=== PATIENT | female | born 1940 | race Caucasian/White ===

== ENCOUNTER → 2019-02-14 10:47 | Outpatient (CLI) | payer MEDICARE, OTHER, SELFPAY ==
--- NOTE | 2019-02-14 | DI.MG.S_ITS ---
BILATERAL DIGITAL SCREENING MAMMOGRAM 3D/2D WITH CAD: 02/14/2019 CLINICAL: Routine screening. Family history of breast cancer. Comparison is made to exams dated: 12/18/2017 mammogram, 11/14/2016 mammogram, and 10/12/2015 mammogram - [facility]. There are scattered fibroglandular elements in both breasts. Current study was also evaluated with a Computer Aided Detection (CAD) system. No significant masses, calcifications, or other findings are seen in either breast. There has been no significant interval change. IMPRESSION: NEGATIVE There is no mammographic evidence of malignancy. A 1 year screening mammogram is recommended. This exam was interpreted at Station ID: [id number]. NOTE: For mammograms, a report in lay terms will be sent to the patient. Approximately 15% of breast malignancies will not be visualized mammographically. In the management of a palpable breast mass, a negative mammogram must not discourage biopsy of a clinically suspicious lesion. Electronically Signed By: Derek garcia/sahra:02/14/2019 21:16:39 letter sent: Normal Exam ACR BI-RADS Category 1: Negative [id number]
== END ==
PROVIDERS: Family Provider Family Medicine; PCP Family Medicine; Visit Provider Family Medicine
DX: Z12.31 Encounter for screening mammogram for malignant neoplasm of breast (principal); Z80.3 Family history of malignant neoplasm of breast
CPT/HCPCS: 77063; 77067

== ENCOUNTER → 2022-01-06 08:25 | Outpatient (CLI) | payer MEDICARE, OTHER, SELFPAY ==
[2022-01-06 19:06] LABS: Add Manual Diff / Slide Review NO; Basophils Absolute Auto 100 /uL (0-100); Eosinophils Absolute Auto 100 /uL (0-450); Eosinophils Percent Auto 1.9 % (2-4); Hematocrit 38.4 % (36-46); Hemoglobin 12.9 g/dL (12.0-16.0); Lymphocytes Absolute Auto 1400 /uL (1100-4500); Lymphocytes Percent Auto 20.8 % (25-40); Mean Corpuscular HGB Conc 33.6 % (30-36); Mean Corpuscular Hemoglobin 27.1 PG (26-34); Mean Corpuscular Volume 80.5 fL (80-100); Monocytes Absolute Auto 700 /uL (0-900); Neutrophils Absolute Auto 4300 /uL (1500-7000); Neutrophils Percent Auto 65.3 % (50-75); Platelet Count 318 X10^3/uL (150-400); Red Blood Cell Count 4.77 X10^6/uL (4.0-5.2); Red Cell Distribution Width 13.3 % (11.6-14.8); White Blood Cell Count 6.6 X10^3/uL (4.5-11.0)
[2022-01-06 19:14] LABS: Alanine Aminotransferase 17 IU/L (<35); Albumin 3.4 g/dL (3.5-5.0); Albumin Globulin Ratio 1.1 (1.0-2.8); Alkaline Phosphatase 75 U/L (38-126); Aspartate Aminotransferase 22 IU/L (14-36); BUN Creatinine Ratio 22.9 (6-22); Bilirubin Total 1.1 mg/dL (0.2-1.3); Blood Urea Nitrogen 16 mg/dL (7-17); Calcium 9.7 mg/dL (8.4-10.2); Carbon Dioxide 36 mmol/L (22-32); Chloride 102 mmol/L (98-107); Estimated Glomerular Filt Rate > 60.0 mL/min (>60); Globulin 3.1 g/dL (1.7-4.1); Glucose 96 mg/dL (80-110); HEMOLYSIS < 15 (0-50); Potassium 3.9 mmol/L (3.4-5.1); Sodium 138 mmol/L (137-145); Total Protein 6.5 g/dL (6.3-8.2)
[2022-01-06 19:32] LABS: TSH w/ Reflex to FT4 < 0.02 uIU/mL (0.47-4.68)
[2022-01-06 20:11] LABS: Free T4, Direct Thyroxine 2.54 ng/dL (0.78-2.19)
== END ==
PROVIDERS: Family Provider Family Medicine; PCP Family Medicine; Visit Provider Family Medicine
DX: I10 Essential (primary) hypertension (principal); R39.15 Urgency of urination; J45.909 Unspecified asthma, uncomplicated
CPT/HCPCS: 80053; 84439; 84443; 85025

== ENCOUNTER → 2022-03-08 09:22 | Outpatient (CLI) | payer MEDICARE, OTHER, SELFPAY ==
[2022-03-08 19:39] LABS: Free T3, Triiodothyronine Free 8.64 pg/mL (2.77-5.27); Free T4, Direct Thyroxine 2.64 ng/dL (0.78-2.19)
[2022-03-08 20:13] LABS: Thyroid Stimulating Hormone < 0.015 uIU/mL (0.47-4.68)
[2022-03-09 08:08] LABS: Thyroid Peroxidase Antibodies 9 IU/mL (0-34)
[2022-03-09 18:24] LABS: Anti Thyroglobulin Antibody <1.0 IU/mL (0.0-0.9)
== END ==
PROVIDERS: Family Provider Family Medicine; PCP Family Medicine; Visit Provider Family Medicine
DX: I10 Essential (primary) hypertension (principal); E05.90 Thyrotoxicosis, unspecified without thyrotoxic crisis or storm; K21.9 Gastro-esophageal reflux disease without esophagitis
CPT/HCPCS: 84439; 84443; 84481; 86376; 86800

== ENCOUNTER → 2022-03-14 12:14 | Outpatient (CLI) | payer MEDICARE, OTHER, SELFPAY ==
[2022-03-15 18:36] LABS: Anti Thyroglobulin Antibody <1.0 IU/mL (0.0-0.9); Thyroid Peroxidase Antibodies 10 IU/mL (0-34)
[2022-03-15 21:16] LABS: Thyroglobulin Antibodies < 1.0 IU/mL (0.0-0.9)
== END ==
PROVIDERS: Family Provider Family Medicine; PCP Family Medicine; Visit Provider Family Medicine
DX: E05.90 Thyrotoxicosis, unspecified without thyrotoxic crisis or storm (principal); I10 Essential (primary) hypertension; J45.901 Unspecified asthma with (acute) exacerbation
CPT/HCPCS: 84432; 86376; 86800

== ENCOUNTER → 2022-03-22 10:55 | Outpatient (CLI) | payer MEDICARE, OTHER, SELFPAY ==
--- NOTE | 2022-03-22 10:58 | DI.US.S_ITS ---
PROCEDURE: US THYROID INDICATIONS: PERSISTENT HYPERTHYROIDISM TECHNIQUE: Real-time scanning was performed of the thyroid gland, with image documentation. COMPARISON: None. FINDINGS: Right: Thyroid lobe measures 5.7 x 3.6 x 3 cm, and is heterogeneous in echotexture. Left: Thyroid lobe measures 3.7 x 1.8 x 1.7 cm, and is heterogeneous in echotexture. Isthmus: 5.4 mm thick. Nodule number: 1 Location: Upper pole right thyroid lobe Size: 1.6 x 1.4 x 1 cm. Composition: Solid Echogenicity: Isoechoic Shape: Wider than tall Margins: Smooth Echogenic foci: Peripheral calcifications are seen. Total points: 5 ACR TI-RADS category: Moderately suspicious. Nodule number: 2 Location: Mid pole of right thyroid lobe Size: 3.7 x 2.1 x 2.5 cm. Composition: Predominantly solid Echogenicity: Isoechoic Shape: Wider than tall Margins: Smooth Echogenic foci: Macro calcifications Total points: 4 ACR TI-RADS category: Moderately suspicious. Nodule number: 3 Location: Medial right mid thyroid lobe. Size: 1.7 x 1.6 x 0.8 cm. Composition: Predominantly solid Echogenicity: Hypoechoic Shape: Wider than tall Margins: Smooth Echogenic foci: None Total points: 4 ACR TI-RADS category: Moderately suspicious. Nodule number: 4 Location: Mid pole of left thyroid lobe Size: 1.9 x 2.1 x 1.2 cm. Composition: Predominantly solid Echogenicity: Hypoechoic Shape: Wider than tall Margins: Smooth Echogenic foci: Punctate Total points: 4 ACR TI-RADS category: Moderately suspicious. Nodule number: 5 Location: Mid to lower pole of left thyroid lobe Size: 1.9 x 0.9 x 0.8 cm Composition: Predominantly solid Echogenicity: Hypoechoic Shape: Wider than tall Margins: Smooth Echogenic foci: Punctate Total points: 4 ACR TI-RADS category: Moderately suspicious. Bilateral neck soft tissue lymph nodes are seen measures up to 7 x 6 x 3 mm in size in right neck soft tissue with suggestion of loss of fatty hilum. IMPRESSION: 1. Heterogeneous thyroid parenchymal echotexture with multiple moderately suspicious bilateral thyroid nodules as described above. Suggest fine needle aspiration of the largest nodule in right mid pole thyroid lobe open (nodule 2). FNA of thyroid nodule 4. In mid pole of left thyroid lobe is also recommended . ACR TI-RADS definitions and recommendations: TI-RADS 1 (benign): 0 points. FNA not needed. TI-RADS 2 (not suspicious): 2 points. FNA not needed. TI-RADS 3 (mildly suspicious): 3 points. * FNA if 2.5 cm or larger, follow up if 1.5 cm or larger (at 1, 3, and 5 years). TI-RADS 4 (moderately suspicious): 4-6 points. * FNA if 1.5 cm or larger, follow up if 1 cm or larger (at 1, 2, 3, and 5 years). TI-RADS 5 (highly suspicious): 7 points or more. * FNA if 1 cm or larger, follow up if 0.5 cm or larger (every year for 5 years). Dictated by: Venancio Peterson M.D. on 03/22/2022 at 12:42 Approved by: Venancio Peterson M.D. on 03/22/2022 at 12:48
== END ==
PROVIDERS: Family Provider Family Medicine; PCP Family Medicine; Referring Provider Family Medicine; Visit Provider Family Medicine
DX: M81.0 Age-related osteoporosis without current pathological fracture (principal); I10 Essential (primary) hypertension; J45.909 Unspecified asthma, uncomplicated; E05.90 Thyrotoxicosis, unspecified without thyrotoxic crisis or storm; K21.9 Gastro-esophageal reflux disease without esophagitis; J30.2 Other seasonal allergic rhinitis; E04.2 Nontoxic multinodular goiter; M85.89 Other specified disorders of bone density and structure, multiple sites
CPT/HCPCS: 76536; 77080

== ENCOUNTER → 2022-05-16 09:00 | Outpatient (CLI) | payer MEDICARE, OTHER, SELFPAY ==
--- NOTE | 2022-05-16 | PATH_ITS ---
Note [facility] Accession Number: [id number] TESTS RESULT FLAG UNITS REF RANGE LAB Clinician Provided Cytology Information No. of containers..02 Previously Prepared Cytology Slide 35 Unknown Storage/container code(s) Source: LEFT THYROID NODULE Clinician ICD10: E04.1 DIAGNOSIS: LEFT THYROID NODULE NEGATIVE FOR MALIGNANT CELLS. BETHESDA CATEGORY II. SPECIMEN CONSISTS OF BENIGN FOLLICULAR CELLS, HEMOSIDERIN-LADEN MACROPHAGES, COLLOID, AND BLOOD. THIS PATTERN IS CONSISTENT WITH A BENIGN FOLLICULAR NODULE. Pathologist ICD10: E04.1 Signed out by: Lizz Barrett MD, Pathologist NPI- [id number] Performed by: Mallorie Jaimes, Valve Maker ([facility]) Gross description: 30 CC, PINK, CLEAR RECIEVED: IN CYTOLYT WITH 6 ALCOHOL FIXED AND 6 QUICK STAINED SLIDES ALSO 1 RNA VIAL WAS RECEIVED. /VDU 05/17/2022 07 Local FLAG LEGEND: L-Low Normal,H-High Normal,LL-Alert Low,HH-Alert High <-Panic Low,>-Panic High,A-Abnormal,AA-Critical Abnormal Performed at: 01 =Z [facility] [address], [place] [address] Tad Burns MD, Performed at: 01 [facility] [address], [place], [place] [id number] MD Tad Burns MD Phone: [phone]
--- NOTE | 2022-05-16 | PATH_ITS ---
Note [facility] Accession Number: [id number] TESTS RESULT FLAG UNITS REF RANGE LAB Clinician Provided Cytology Information No. of containers..02 Previously Prepared Cytology Slide 35 Unknown Storage/container code(s) Source: RIGHT THYROID NODULE DIAGNOSIS: RIGHT THYROID NODULE INCONCLUSIVE. BETHESDA CATEGORY III. ATYPIA OF UNDETERMINED SIGNIFICANCE. MOLECULAR STUDIES REQUESTED ON THE RNA VIAL; RESULTS WILL BE REPORTED SEPARATELY. Pathologist ICD10: R89.6 Signed out by: Lizz Barrett MD, Pathologist NPI- [id number] Performed by: Mallorie Jaimes, Cell Cleaner ([facility]) Gross description: 30 CC, PINK, CLEAR RECIEVED: IN CYTOLYT WITH 6 ALCOHOL FIXED AND 6 QUICK STAINED SLIDES ALSO 1 RNA VIAL WAS RECEIVED. /VDU 05/17/2022 [facility] Local FLAG LEGEND: L-Low Normal,H-High Normal,LL-Alert Low,HH-Alert High <-Panic Low,>-Panic High,A-Abnormal,AA-Critical Abnormal Performed at: 01 =Z [facility] [address], [place] [address] Tad Burns MD, Performed at: 01 [facility] [address], [place], [place] [id number] MD Tad Burns MD Phone: [phone]
--- NOTE | 2022-05-16 09:01 | DI.US.S_ITS ---
PROCEDURE: US FINE NEEDLE ASPIRATION INDICATIONS: BILATERAL NODULE FNA TECHNIQUE: The indications, alternatives, benefits, risks, and complications of the procedure were explained to the patient. Written informed consent was obtained and placed in the chart. The area of interest was examined sonographically and a site was chosen for ultrasound guided percutaneous sampling. The skin was prepared and draped in the usual fashion, and anesthetized with 1% lidocaine infiltrated from the skin down to the lesion. Multiple passes were then performed, with contents emptied into an appropriate pathology specimen container. A bandage was applied to the area of access at completion of the study. COMPARISON: [facility], , US THYROID, 03/22/2022, 12:07. FINDINGS: Location(s) of lesion(s) sampled: -Right mid (nodule 2 from the exam dated 03/22/2022), -Left mid (nodule 4 on the prior report, which is labeled as left nodule 1 on the ultrasound images from the prior exam). [place]: 25 gauge hypodermic needles. Number of passes: 6 passes each Medications: 1% lidocaine for local anaesthesia. Complications: None. IMPRESSION: Successful ultrasound-guided fine needle aspiration of bilateral thyroid nodules, with cytology results pending. Dictated by: Ricardo Andrews M.D. on 05/16/2022 at 15:08 Approved by: Ricardo Andrews M.D. on 05/16/2022 at 15:11
== END ==
PROVIDERS: Family Provider Family Medicine; PCP Family Medicine; Referring Provider Family Medicine; Visit Provider Family Medicine
DX: E04.2 Nontoxic multinodular goiter (principal)
CPT/HCPCS: 10005; 10006

== ENCOUNTER → 2022-09-27 09:38 | Outpatient (CLI) | payer MEDICARE, OTHER, SELFPAY ==
[2022-09-27 12:30] LABS: COVID19 -Nasal RAPID Negative (Negative)
== END ==
PROVIDERS: Family Provider Family Medicine; PCP Family Medicine; Visit Provider Surgery
DX: Z01.812 Encounter for preprocedural laboratory examination (principal); Z20.822 Contact with and (suspected) exposure to COVID-19
CPT/HCPCS: 87635; C9803

== ENCOUNTER → 2022-09-28 10:20 | Day surgery (SDC) | payer MEDICARE, OTHER, SELFPAY ==
[2022-09-28] VITALS (9 sets, daily range): BP systolic 141–224; BP diastolic 67–96; PULSE 57–80; RESP 14–20; TEMP 36.4–36.8; O2SAT 94–100; BMI 26.5
--- NOTE | 2022-09-28 10:39 | PM.HP.1 ---
History of Present Illness History of Present Illness Chief complaint: EGD Narrative: Dysphagia Patient History Medical History Asthma GERD (gastroesophageal reflux disease) Hyperthyroidism Osteoporosis Seasonal allergic rhinitis Thyroid nodule Family & Social History Tobacco & Substance use: Smoking Status Former smoker Meds Home Medications and Allergies Home Medications Medication Instructions Recorded Confirmed Type aspirin 81 mg tablet,delayed 81 mg PO DAILY 12/14/21 05/09/22 History release fluticasone propionate 50 1 spray intranasal DAILY #16 grams 01/24/22 05/09/22 Rx mcg/actuation nasal spray,suspension olopatadine 0.1 % eye drops drp EYE-BOTH BID PRN allergy 01/24/22 05/09/22 History symptoms oxybutynin chloride 5 mg 5 mg PO DAILY #90 tabs 05/09/22 05/09/22 Rx tablet,extended release 24 hr risedronate 35 mg tablet (Actonel) 35 mg PO QWEEK #12 tabs 05/09/22 05/09/22 Rx atenolol 50 mg tablet 50 mg PO BID #180 tabs 07/25/22 Rx lisinopril 20 mg tablet 20 mg PO DAILY #90 tabs 08/31/22 Rx methimazole 5 mg tablet 5 mg PO DAILY #90 tabs 08/31/22 Rx omeprazole 20 mg tablet,delayed 20 mg PO DAILY #90 tabs 08/31/22 Rx release albuterol sulfate 90 mcg/actuation 2 puff inhalation Q4-6H PRN 09/21/22 Rx aerosol inhaler (ProAir HFA) bronchospasm #8.5 grams budesonide-formoterol HFA 160 See Rx Instructions .Route 09/21/22 Rx mcg-4.5 mcg/actuation aerosol .COMPLEX #10.2 grams inhaler (Symbicort) hydrochlorothiazide 25 mg tablet 25 mg PO DAILY #90 tabs 09/21/22 Rx Allergies Allergy/AdvReac Type Severity Reaction Status Date / Time bacitracin Allergy Unknown Verified 02/22/22 08:43 [From Neosporin ([id number])] ciprofloxacin [CIPROFLOXACIN] Allergy Unknown Verified 02/22/22 08:43 codeine [CODEINE] Allergy Unknown Verified 02/22/22 08:43 epinephrine [EPINEPHRINE] Allergy Unknown Verified 02/22/22 08:43 lidocaine [From XYLOCAINE] Allergy Unknown Verified 02/22/22 08:43 metronidazole [From FLAGYL] Allergy Unknown Verified 02/22/22 08:43 neomycin Allergy Unknown Verified 02/22/22 08:43 [From Neosporin ([id number])] Penicillins [PENICILLINS] Allergy Unknown Verified 02/22/22 08:43 polymyxin B Allergy Unknown Verified 02/22/22 08:43 [From Neosporin ([id number])] clindamycin [CLINDAMYCIN] AdvReac Unknown nausea Verified 02/22/22 08:43 Exam Narrative Exam Narrative: Oropharynx free of lesions Chest clear to auscultation percussion Cardiac exam reveals no S3 or murmur Assessment & Plan Assessment & Plan narrative: Suprasternal notch dysphagia need to evaluate with EGD. Risks, benefits, and alternatives discussed. Time Spent With Patient Critical Care time: I spent a total of [] minutes of critical care time on this patient's care today; this time is exclusive of procedural time.
--- NOTE | 2022-09-28 10:41 | PM.OP.EGD ---
Operative Date/Time/Diagnoses Date of procedure: 09/28/22 Procedure & Clinicians Study performed: EGD Indications: Dysphagia Surgeon: Shay Montero Procedure Notes Procedure in detail: After informed consent was obtained the patient was placed in left lateral decubitus position. The video upper scope was placed into the oropharynx and with the patient's help swallowed into the esophagus. The esophagus stomach and duodenum were carefully examined. On withdrawal retroflexed view the GE junction was performed. The scope was removed. The patient tolerated procedure well. Blood loss none Complications none Findings 1. Hypopharynx shows less space between the epiglottis and posterior pharynx. No inflammation or clear-cut masses seen 2. Normal esophagus 3. Normal stomach 4. Normal duodenal bulb and sweep Michell is having symptoms on the left side. I think she needs further workup starting with a video fluoroscopic swallowing study at [facility].
[2022-09-28] MEDS: SODIUM CHLORIDE 0.9% 1,000 ML 100 ML IV (10:49)
--- NOTE | 2022-09-28 16:22 | SUR.PHASEII ---
Patient's BP jayla after procedure. Patient reported 5/[address] Montero and RIZWAN lAfonso notified and patient was recommended to be evaluated in the ER. Patient agreed and she was transferred by stretcher to the ER. Report was called, then given at bedside to CAMILLE Cordero.
== END | disposition home or self-care (01) ==
PROVIDERS: Family Provider Family Medicine; PCP Family Medicine; Referring Provider Internal Medicine Gastroenterology; Visit Provider Internal Medicine Gastroenterology
PROC: 0DJ08ZZ Inspection of Upper Intestinal Tract, Via Natural or Artificial Opening Endoscopic (ICD-10-PCS; CPT 43235; principal; 2022-09-28 11:30)
DX: R13.10 Dysphagia, unspecified (principal); K21.9 Gastro-esophageal reflux disease without esophagitis; J45.909 Unspecified asthma, uncomplicated; I10 Essential (primary) hypertension; E03.9 Hypothyroidism, unspecified
CPT/HCPCS: 43235; 36415; 80048; 82550; 84484; 85025; 93005; 96374; 99284; J0360; J2704

== ENCOUNTER 2022-09-28 12:27 | Emergency (ER) | payer MEDICARE, OTHER, SELFPAY ==
[2022-09-28] VITALS (17 sets, daily range): BP systolic 189–222; BP diastolic 75–109; PULSE 63–90; RESP 18–24; TEMP 36.7; O2SAT 96–99; BMI 26.5
--- NOTE | 2022-09-28 13:05 | ED.GENADULT ---
HPI - General Adult General Chief complaint: Hypertension Stated complaint: Hypertension, Post Procedure Time Seen by Provider: 09/28/22 12:55 Source: patient Mode of arrival: Wheelchair Limitations: no limitations History of Present Illness HPI narrative: Patient is an 81-year-old female. Does have a history of hypertension. Is on medications. She did take her medications this morning. She had a upper endoscopy today. Afterwards was noted in PACU that her blood pressure has been elevated. Patient is asymptomatic. No chest pain. No shortness of breath. No headache. No lightheadedness. She states that at baseline her systolic blood pressures in the 150s/160 range. She was sent to the emergency department from PACU because of her blood pressure Related Data Home Medications Medication Instructions Recorded Confirmed aspirin 81 mg tablet,delayed 81 mg PO DAILY 12/14/21 09/28/22 release oxybutynin chloride 5 mg 5 mg PO DAILY 09/28/22 09/28/22 tablet,extended release 24 hr Previous Rx's Medication Instructions Recorded oxybutynin chloride 5 mg 5 mg PO DAILY #90 tabs 05/09/22 tablet,extended release 24 hr risedronate 35 mg tablet (Actonel) 35 mg PO QWEEK #12 tabs 05/09/22 atenolol 50 mg tablet 50 mg PO BID #180 tabs 07/25/22 lisinopril 20 mg tablet 20 mg PO DAILY #90 tabs 08/31/22 methimazole 5 mg tablet 5 mg PO DAILY #90 tabs 08/31/22 omeprazole 20 mg tablet,delayed 20 mg PO DAILY #90 tabs 08/31/22 release albuterol sulfate 90 mcg/actuation 2 puff inhalation Q4-6H PRN 09/21/22 aerosol inhaler (ProAir HFA) bronchospasm #8.5 grams budesonide-formoterol HFA 160 See Rx Instructions .Route 09/21/22 mcg-4.5 mcg/actuation aerosol .COMPLEX #10.2 grams inhaler (Symbicort) hydrochlorothiazide 25 mg tablet 25 mg PO DAILY #90 tabs 09/21/22 Allergies Allergy/AdvReac Type Severity Reaction Status Date / Time bacitracin Allergy Unknown Verified 09/28/22 12:32 [From Neosporin ([id number])] ciprofloxacin [CIPROFLOXACIN] Allergy Unknown Verified 09/28/22 12:32 codeine [CODEINE] Allergy Unknown Verified 09/28/22 12:32 epinephrine [EPINEPHRINE] Allergy Unknown Verified 09/28/22 12:32 lidocaine [From XYLOCAINE] Allergy Unknown Verified 09/28/22 12:32 metronidazole [From FLAGYL] Allergy Unknown Verified 09/28/22 12:32 neomycin Allergy Unknown Verified 09/28/22 12:32 [From Neosporin ([id number])] Penicillins [PENICILLINS] Allergy Unknown Verified 09/28/22 12:32 polymyxin B Allergy Unknown Verified 09/28/22 12:32 [From Neosporin ([id number])] clindamycin [CLINDAMYCIN] AdvReac Unknown nausea Verified 09/28/22 12:32 Review of Systems Constitutional Constitutional: Reports system reviewed and no additional complaints, except as documented Eyes Eyes: Reports system reviewed and no additional complaints, except as documented Cardiovascular Cardiovascular: Reports system reviewed and no additional complaints, except as documented Respiratory Respiratory: Reports system reviewed and no additional complaints, except as documented Gastrointestinal Gastrointestinal: Reports system reviewed and no additional complaints, except as documented Integumentary/Breasts Skin/Breast: Reports system reviewed and no additional complaints, except as documented Neurologic Neurologic: Reports system reviewed and no additional complaints, except as documented Hematologic/Lymphatic On Anticoagulants: No Allergic/Immunologic Allergic/Immunologic: Reports system reviewed and no additional complaints, except as documented Patient History Medical History Asthma GERD (gastroesophageal reflux disease) Hyperthyroidism Osteoporosis Seasonal allergic rhinitis Thyroid nodule Social History household members: spouse Smoking Status: Former smoker alcohol intake: never Smoking Status: Former smoker Substance Use Type: does not use Exam Initial Vital Signs Initial Vital Signs: Vital Signs Temperature 98.1 F 09/28/22 12:28 Pulse Rate 90 09/28/22 12:28 Respiratory Rate 18 09/28/22 12:28 Blood Pressure 222/109 H 09/28/22 12:28 Pulse Oximetry 99 09/28/22 12:28 Oxygen Delivery Method 09/28/22 12:28 HENMT Head: normal to inspection and normocephalic Chest Chest: normal inspection of the chest Resp Effort & Inspection: normal respiratory effort Auscultation: clear to auscultation bilaterally Cardio Rate: regular rate Rhythm: regular rhythm GI Inspection: normal to inspection Skin General: no rashes or lesions noted Neuro General: patient alert, patient awake, patient oriented x3 and moves all extremities Extrem General: normal to inspection and capillary refill normal Psych Appearance: grossly normal and well kempt Course Orders Ordered: ED Orders 09/28/22 12:30 Complete Blood Count AUTO DIFF Stat 09/28/22 13:06 EKG-12 Lead Stat 09/28/22 13:18 Basic Metabolic Panel Stat Troponin & CK Cardiac Panel Stat Discontinued Medications Hydralazine HCl (Hydralazine 20 Mg/Ml Vial) 5 mg IV NOW ONE Stop: 09/28/22 13:06 Last Admin: 09/28/22 13:17 Dose: 5 mg Documented By: SHIVANI Vital Signs Vital signs: Vital Signs - 8 hr 09/28/22 12:28 09/28/22 12:30 09/28/22 12:42 Temperature 98.1 F Pulse Rate 90 90 Respiratory Rate 18 22 Blood Pressure 222/109 H 218/94 H Pulse Oximetry 99 98 Oxygen Delivery Method Room Air 09/28/22 12:42 09/28/22 12:45 09/28/22 12:45 Temperature Pulse Rate 84 83 Respiratory Rate 19 18 Blood Pressure 200/75 H Pulse Oximetry 99 98 Oxygen Delivery Method 09/28/22 13:00 09/28/22 13:01 09/28/22 13:01 Temperature Pulse Rate 86 89 Respiratory Rate 21 24 Blood Pressure 205/95 H Pulse Oximetry 97 97 Oxygen Delivery Method 09/28/22 13:11 09/28/22 13:11 09/28/22 13:14 Temperature Pulse Rate 88 82 Respiratory Rate Blood Pressure 217/98 H Pulse Oximetry 98 99 Oxygen Delivery Method 09/28/22 13:15 09/28/22 13:17 09/28/22 13:15 Temperature Pulse Rate 88 85 Respiratory Rate Blood Pressure 206/78 H 206/78 H Pulse Oximetry 98 Oxygen Delivery Method 09/28/22 13:30 09/28/22 13:30 09/28/22 13:45 Temperature Pulse Rate 63 65 Respiratory Rate 18 19 Blood Pressure 195/84 H Pulse Oximetry 98 97 Oxygen Delivery Method 09/28/22 13:46 09/28/22 13:46 09/28/22 14:08 Temperature Pulse Rate 65 67 Respiratory Rate 18 Blood Pressure 196/99 H Pulse Oximetry 97 96 Oxygen Delivery Method 09/28/22 14:10 09/28/22 14:10 09/28/22 14:15 Temperature Pulse Rate 65 67 Respiratory Rate 18 22 Blood Pressure 189/77 H Pulse Oximetry 99 98 Oxygen Delivery Method 09/28/22 14:17 09/28/22 14:17 Temperature Pulse Rate 71 Respiratory Rate 24 Blood Pressure 208/91 H Pulse Oximetry 98 Oxygen Delivery Method Medical Decision Making Lab Data Lab results reviewed: Yes I reviewed the patient's lab results. Result diagrams: 09/28/22 12:30 09/28/22 13:18 Labs: Lab Results 09/28/22 09/28/22 Range/Units 12:30 13:18 WBC 8.8 (4.5-11.0) X10^3/uL RBC 5.15 (4.0-5.2) X10^6/uL Hgb 14.2 (12.0-16.0) g/dL Hct 43.1 (36-46) % MCV 83.8 (80-100) fL MCH 27.6 (26-34) PG MCHC 32.9 (30-36) % RDW 13.7 (11.6-14.8) % Plt Count 300 (150-400) X10^3/uL Neut % (Auto) 78.2 H (50-75) % Lymph % (Auto) 15.8 L (25-40) % [place] % (Auto) 5.1 (3-14) % Eos % (Auto) 0.5 L (2-4) % Baso % (Auto) 0.4 (0-2) % Neut # (Auto) 6900 (4331-9460) /uL Lymph # (Auto) 1400 (9502-3044) /uL [place] # (Auto) 400 (0-900) /uL Eos # (Auto) 0 (0-450) /uL Baso # (Auto) 0 (0-100) /uL Sodium 137 (137-145) mmol/L Potassium 3.8 (3.4-5.1) mmol/L Chloride 99 (98-107) mmol/L Carbon Dioxide 30 (22-32) mmol/L BUN 17 (7-17) mg/dL Creatinine 0.66 (0.52-1.04) mg/dL Estimated GFR > 60 (>60) mL/min BUN/Creatinine Ratio 25.8 H (6-22) Glucose 97 (80-110) mg/dL Calcium 8.7 (8.4-10.2) mg/dL Total Creatine Kinase 23 L (30-135) U/L CK-MB (CK-2) TNP CK-MB (CK-2) Rel Index TNP Troponin I < 0.012 (0.01-0.034) ng/mL ECG Data Attestation: I personally reviewed and interpreted this ECG as follows: Interpretation: Sinus rhythm Ventricular rate 86 Normal axis Normal QRS Normal QTC Nonspecific ST T wave changes MDM Narrative Medical decision making narrative: Patient was hypertensive upon arrival. She was given hydralazine. This did improve her blood pressure somewhat. She is asymptomatic from this elevation in the blood pressure. Low suspicion for stroke. Low suspicion for ACS. Kidney functions unremarkable. Not clinically in heart failure. Will discharge the patient home. She is going to take her blood pressure medication as directed. She is going to take her blood pressure at home. She was given strict return precautions. If she develops any specific symptoms she will return to the emergency department. If she has asymptomatic high blood pressure she will contact her primary doctor for follow-up. She expressed understanding and agreement with plan. Discharge Plan Departure Patient Disposition: Home Clinical Impression: Hypertension Instructions: DI for High Blood Pressure Activity Restrictions/Additional Instructions: I recommend that you continue to take all of your medications as directed. Follow all of the postprocedure instructions given to you by the general surgeon today. Contact your primary doctor for follow-up. Return to the emergency department for any new or worsening symptoms. Prescriptions: No Action atenolol 50 mg tablet 50 mg PO BID Qty: 180 3RF omeprazole 20 mg tablet,delayed release (DR/EC) 20 mg PO DAILY Qty: 90 3RF lisinopril 20 mg tablet 20 mg PO DAILY Qty: 90 3RF Rx Instructions: 1/2 a pill a day for 4 days then 1 per day methimazole 5 mg tablet 5 mg PO DAILY Qty: 90 1RF hydrochlorothiazide 25 mg tablet 25 mg PO DAILY Qty: 90 3RF budesonide-formoterol [Symbicort] 160-4.5 mcg/actuation HFA aerosol inhaler See Rx Instructions .ROUTE .COMPLEX Qty: 10.2 3RF Dose Instruction: INHALE ONE PUFF BY MOUTH EVERY DAY NEEDED FOR ASTHMA EXACERBATION Rx Instructions: INHALE ONE PUFF BY MOUTH EVERY DAY NEEDED FOR ASTHMA EXACERBATION albuterol sulfate [ProAir HFA] 90 mcg/actuation HFA aerosol inhaler 2 puff inhalation Q4-6H PRN (Reason: bronchospasm) Qty: 8.5 1RF oxybutynin chloride 5 mg tablet extended release 24hr 5 mg PO DAILY aspirin 81 mg tablet,delayed release (DR/EC) 81 mg PO DAILY risedronate [Actonel] 35 mg tablet 35 mg PO QWEEK Qty: 12 3RF Rx Instructions: administer at least 30 minutes before the first food or drink of the day other than water. oxybutynin chloride 5 mg tablet extended release 24hr 5 mg PO DAILY Qty: 90 3RF Referrals: Philippe Dumont DO [Primary Care Provider] - Visit Report Forms: Patient Portal/API
[2022-09-28] MEDS: HYDRALAZINE 20 MG/ML VIAL 5 MG IV (13:17)
[2022-09-28 13:21] LABS: Add Manual Diff / Slide Review NO; Basophils Absolute Auto 0 /uL (0-100); Basophils Percent Auto 0.4 % (0-2); Eosinophils Absolute Auto 0 /uL (0-450); Eosinophils Percent Auto 0.5 % (2-4); Hematocrit 43.1 % (36-46); Hemoglobin 14.2 g/dL (12.0-16.0); Lymphocytes Absolute Auto 1400 /uL (1100-4500); Lymphocytes Percent Auto 15.8 % (25-40); Mean Corpuscular HGB Conc 32.9 % (30-36); Mean Corpuscular Hemoglobin 27.6 PG (26-34); Mean Corpuscular Volume 83.8 fL (80-100); Monocytes Absolute Auto 400 /uL (0-900); Monocytes Percent Auto 5.1 % (3-14); Neutrophils Absolute Auto 6900 /uL (1500-7000); Neutrophils Percent Auto 78.2 % (50-75); Platelet Count 300 X10^3/uL (150-400); Red Blood Cell Count 5.15 X10^6/uL (4.0-5.2); Red Cell Distribution Width 13.7 % (11.6-14.8); White Blood Cell Count 8.8 X10^3/uL (4.5-11.0)
[2022-09-28 13:59] LABS: BUN Creatinine Ratio 25.8 (6-22); Blood Urea Nitrogen 17 mg/dL (7-17); Calcium 8.7 mg/dL (8.4-10.2); Carbon Dioxide 30 mmol/L (22-32); Chloride 99 mmol/L (98-107); Creatine Kinase 23 U/L (30-135); Estimated Glomerular Filt Rate > 60 mL/min (>60); Glucose 97 mg/dL (80-110); HEMOLYSIS < 15 (0-50); Potassium 3.8 mmol/L (3.4-5.1); Sodium 137 mmol/L (137-145)
[2022-09-28 14:10] LABS: Troponin I < 0.012 ng/mL (0.01-0.034)
--- NOTE | 2022-09-28 14:27 | PC.NURSE ---
Patient asymptomatic at discharge. Patient advised to monitor blood pressures at home and continue all medications. Patient has scheduled follow up with PCP
== END 2022-09-28 14:28 | disposition home or self-care (01) ==
PROVIDERS: Emergency Provider Emergency Medicine; Family Provider Family Medicine; PCP Family Medicine
DX: I10 Essential (primary) hypertension (principal)
CPT/HCPCS: 36415; 80048; 82550; 84484; 85025; 93005; J0360

== ENCOUNTER → 2022-10-25 12:02 | Outpatient (CLI) | payer MEDICARE, OTHER, SELFPAY ==
[2022-10-25 19:40] LABS: Alanine Aminotransferase 21 IU/L (<35); Albumin 3.3 g/dL (3.5-5.0); Alkaline Phosphatase 83 U/L (38-126); Aspartate Aminotransferase 23 IU/L (14-36); BUN Creatinine Ratio 24.3 (6-22); Bilirubin Total 0.5 mg/dL (0.2-1.3); Blood Urea Nitrogen 17 mg/dL (7-17); Calcium 8.7 mg/dL (8.4-10.2); Carbon Dioxide 32 mmol/L (22-32); Chloride 97 mmol/L (98-107); Estimated Glomerular Filt Rate > 60 mL/min (>60); Globulin 3.3 g/dL (1.7-4.1); Glucose 84 mg/dL (80-110); HEMOLYSIS < 15 (0-50); Sodium 137 mmol/L (137-145); Total Protein 6.6 g/dL (6.3-8.2)
[2022-10-25 19:48] LABS: Add Manual Diff / Slide Review NO; Basophils Absolute Auto 100 /uL (0-100); Basophils Percent Auto 0.8 % (0-2); Eosinophils Absolute Auto 100 /uL (0-450); Eosinophils Percent Auto 1.4 % (2-4); Hematocrit 38.5 % (36-46); Lymphocytes Absolute Auto 1800 /uL (1100-4500); Lymphocytes Percent Auto 19.9 % (25-40); Mean Corpuscular HGB Conc 33.8 % (30-36); Monocytes Absolute Auto 700 /uL (0-900); Neutrophils Absolute Auto 6300 /uL (1500-7000); Neutrophils Percent Auto 69.9 % (50-75); Platelet Count 326 X10^3/uL (150-400); Red Blood Cell Count 4.64 X10^6/uL (4.0-5.2); Red Cell Distribution Width 13.4 % (11.6-14.8)
== END ==
PROVIDERS: Family Provider Family Medicine; PCP Family Medicine; Visit Provider Family Medicine
DX: K21.9 Gastro-esophageal reflux disease without esophagitis (principal); E04.1 Nontoxic single thyroid nodule
CPT/HCPCS: 80053; 85025

== ENCOUNTER → 2023-05-18 09:38 | Outpatient (CLI) | payer MEDICARE, OTHER, SELFPAY ==
[2023-05-18 11:15] LABS: Add Manual Diff / Slide Review NO; Basophils Absolute Auto 100 /uL (0-100); Basophils Percent Auto 0.7 % (0-2); Eosinophils Absolute Auto 100 /uL (0-450); Eosinophils Percent Auto 1.6 % (2-4); Hematocrit 38.1 % (36-46); Hemoglobin 13.2 g/dL (12.0-16.0); Lymphocytes Absolute Auto 1300 /uL (1100-4500); Lymphocytes Percent Auto 16.8 % (25-40); Mean Corpuscular HGB Conc 34.7 % (30-36); Mean Corpuscular Volume 83.6 fL (80-100); Monocytes Absolute Auto 400 /uL (0-900); Monocytes Percent Auto 5.3 % (3-14); Neutrophils Absolute Auto 5700 /uL (1500-7000); Neutrophils Percent Auto 75.6 % (50-75); Platelet Count 320 X10^3/uL (150-400); Red Blood Cell Count 4.55 X10^6/uL (4.0-5.2); Red Cell Distribution Width 13.1 % (11.6-14.8); White Blood Cell Count 7.5 X10^3/uL (4.5-11.0)
[2023-05-18 11:22] LABS: Alanine Aminotransferase 18 IU/L (<35); Albumin 3.5 g/dL (3.5-5.0); Albumin Globulin Ratio 1.2 (1.0-2.8); Alkaline Phosphatase 69 U/L (38-126); Aspartate Aminotransferase 21 IU/L (14-36); Bilirubin Total 0.5 mg/dL (0.2-1.3); Blood Urea Nitrogen 18 mg/dL (7-17); Calcium 8.8 mg/dL (8.4-10.2); Carbon Dioxide 30 mmol/L (22-32); Chloride 98 mmol/L (98-107); Estimated Glomerular Filt Rate > 60 mL/min (>60); Glucose 91 mg/dL (80-110); HEMOLYSIS < 15 (0-50); Potassium 3.6 mmol/L (3.4-5.1); Sodium 133 mmol/L (137-145); Total Protein 6.5 g/dL (6.3-8.2)
[2023-05-18 11:58] LABS: Ferritin 44 ng/mL (11-264)
[2023-05-18 15:27] LABS: HEMOLYSIS < 15 (0-50); Iron 68 ug/dL (37-170)
[2023-05-18 15:40] LABS: Percent Iron Saturation 22 % (15-50); Total Iron Binding Capacity 306 ug/dL (265-497); Transferrin 216 mg/dL (206-381)
== END ==
PROVIDERS: Family Provider Family Medicine; PCP Family Medicine; Referring Provider Family Medicine; Visit Provider Family Medicine
DX: G47.00 Insomnia, unspecified (principal); D64.9 Anemia, unspecified; I10 Essential (primary) hypertension; E05.90 Thyrotoxicosis, unspecified without thyrotoxic crisis or storm
CPT/HCPCS: 36415; 80053; 82728; 83540; 83550; 85025

== ENCOUNTER → 2023-09-28 13:12 | Outpatient (CLI) | payer MEDICARE, OTHER, SELFPAY ==
[2023-09-28 21:05] LABS: BUN Creatinine Ratio 19.2 (6-22); Blood Urea Nitrogen 15 mg/dL (7-17); Calcium 9.4 mg/dL (8.4-10.2); Carbon Dioxide 31 mmol/L (22-32); Chloride 93 mmol/L (98-107); Estimated Glomerular Filt Rate > 60 mL/min (>60); Glucose 96 mg/dL (80-110); HEMOLYSIS < 15 (0-50); Potassium 4.2 mmol/L (3.4-5.1); Sodium 130 mmol/L (137-145)
[2023-09-28 21:13] LABS: Add Manual Diff / Slide Review NO; Basophils Absolute Auto 100 /uL (0-100); Eosinophils Absolute Auto 100 /uL (0-450); Eosinophils Percent Auto 0.9 % (2-4); Hematocrit 37.3 % (36-46); Hemoglobin 12.5 g/dL (12.0-16.0); Lymphocytes Absolute Auto 1500 /uL (1100-4500); Lymphocytes Percent Auto 16.5 % (25-40); Mean Corpuscular HGB Conc 33.5 % (30-36); Mean Corpuscular Hemoglobin 28.4 PG (26-34); Mean Corpuscular Volume 84.7 fL (80-100); Monocytes Absolute Auto 700 /uL (0-900); Monocytes Percent Auto 7.5 % (3-14); Neutrophils Absolute Auto 6800 /uL (1500-7000); Neutrophils Percent Auto 74.1 % (50-75); Platelet Count 482 X10^3/uL (150-400); Red Blood Cell Count 4.41 X10^6/uL (4.0-5.2); Red Cell Distribution Width 12.8 % (11.6-14.8); White Blood Cell Count 9.2 X10^3/uL (4.5-11.0)
[2023-09-28 21:40] LABS: Ferritin 95 ng/mL (11-264)
[2023-09-28 22:14] LABS: HEMOLYSIS < 15 (0-50); Iron 49 ug/dL (37-170)
[2023-09-28 22:25] LABS: Percent Iron Saturation 20 % (15-50); Total Iron Binding Capacity 251 ug/dL (265-497); Transferrin 203 mg/dL (206-381)
== END ==
PROVIDERS: Family Provider Family Medicine; PCP Family Medicine; Visit Provider Family Medicine
DX: D64.9 Anemia, unspecified (principal); G47.00 Insomnia, unspecified; I10 Essential (primary) hypertension; E87.1 Hypo-osmolality and hyponatremia
CPT/HCPCS: 80048; 82728; 83540; 83550; 85025

== ENCOUNTER → 2023-10-03 08:31 | Outpatient (CLI) | payer MEDICARE, OTHER, SELFPAY ==
[2023-10-03 21:16] LABS: Sodium Urine Random 77 mmol/L (30-90)
[2023-10-05 16:56] LABS: Osmolality Urine 478 mOsmol/kg (.)
== END ==
PROVIDERS: Family Provider Family Medicine; PCP Family Medicine; Visit Provider Family Medicine
DX: E87.1 Hypo-osmolality and hyponatremia (principal)
CPT/HCPCS: 83935; 84300

== ENCOUNTER → 2023-12-07 13:09 | Outpatient (CLI) | payer MEDICARE, OTHER, SELFPAY ==
[2023-12-07 20:40] LABS: Add Manual Diff / Slide Review NO; Basophils Absolute Auto 100 /uL (0-100); Basophils Percent Auto 0.8 % (0-2); Eosinophils Absolute Auto 100 /uL (0-450); Eosinophils Percent Auto 0.9 % (2-4); Hematocrit 38.5 % (36-46); Hemoglobin 13.3 g/dL (12.0-16.0); Lymphocytes Absolute Auto 1400 /uL (1100-4500); Mean Corpuscular HGB Conc 34.5 % (30-36); Mean Corpuscular Hemoglobin 29.3 PG (26-34); Monocytes Absolute Auto 500 /uL (0-900); Monocytes Percent Auto 6.2 % (3-14); Neutrophils Absolute Auto 5800 /uL (1500-7000); Neutrophils Percent Auto 74.1 % (50-75); Platelet Count 346 X10^3/uL (150-400); Red Blood Cell Count 4.53 X10^6/uL (4.0-5.2); Red Cell Distribution Width 13.7 % (11.6-14.8); White Blood Cell Count 7.9 X10^3/uL (4.5-11.0)
[2023-12-07 20:45] LABS: HEMOLYSIS < 15 (0-50); Iron 90 ug/dL (37-170)
[2023-12-07 20:47] LABS: BUN Creatinine Ratio 18.4 (6-22); Blood Urea Nitrogen 16 mg/dL (7-17); Calcium 9.4 mg/dL (8.4-10.2); Carbon Dioxide 30 mmol/L (22-32); Chloride 95 mmol/L (98-107); Estimated Glomerular Filt Rate > 60 mL/min (>60); Glucose 70 mg/dL (80-110); HEMOLYSIS < 15 (0-50); Potassium 4.3 mmol/L (3.4-5.1); Sodium 133 mmol/L (137-145)
[2023-12-07 21:04] LABS: Free T3, Triiodothyronine Free 3.81 pg/mL (2.77-5.27); Free T4, Direct Thyroxine 0.77 ng/dL (0.78-2.19); Percent Iron Saturation 32 % (15-50); Total Iron Binding Capacity 279 ug/dL (265-497); Transferrin 241 mg/dL (206-381)
[2023-12-07 21:17] LABS: Thyroid Stimulating Hormone 1.58 uIU/mL (0.47-4.68)
[2023-12-07 21:20] LABS: Ferritin 55 ng/mL (11-264)
[2023-12-11 15:36] LABS: Osmolality, Serum 276 mOsmol/kg (280-301)
== END ==
PROVIDERS: Family Provider Family Medicine; PCP Family Medicine; Visit Provider Family Medicine
DX: E87.1 Hypo-osmolality and hyponatremia (principal); E05.90 Thyrotoxicosis, unspecified without thyrotoxic crisis or storm; D64.9 Anemia, unspecified; I10 Essential (primary) hypertension; G47.00 Insomnia, unspecified; M25.559 Pain in unspecified hip
CPT/HCPCS: 80048; 82728; 83540; 83550; 83930; 84439; 84443; 84481; 85025

== ENCOUNTER → 2024-03-26 11:46 | Outpatient (CLI) | payer MEDICARE, OTHER, SELFPAY ==
[2024-03-26 19:40] LABS: Add Manual Diff / Slide Review NO; Basophils Absolute Auto 0 /uL (0-100); Basophils Percent Auto 0.6 % (0-2); Eosinophils Absolute Auto 100 /uL (0-450); Eosinophils Percent Auto 1.1 % (2-4); HEMOLYSIS < 15 (0-50); Hematocrit 38.1 % (36-46); Hemoglobin 12.8 g/dL (12.0-16.0); Iron 90 ug/dL (37-170); Lymphocytes Absolute Auto 1400 /uL (1100-4500); Lymphocytes Percent Auto 16.9 % (25-40); Mean Corpuscular HGB Conc 33.7 % (30-36); Mean Corpuscular Volume 86.1 fL (80-100); Monocytes Absolute Auto 500 /uL (0-900); Monocytes Percent Auto 6.4 % (3-14); Neutrophils Absolute Auto 6400 /uL (1500-7000); Platelet Count 347 X10^3/uL (150-400); Red Blood Cell Count 4.42 X10^6/uL (4.0-5.2); Red Cell Distribution Width 12.8 % (11.6-14.8); White Blood Cell Count 8.6 X10^3/uL (4.5-11.0)
[2024-03-26 19:46] LABS: BUN Creatinine Ratio 23.7 (6-22); Blood Urea Nitrogen 18 mg/dL (7-17); Calcium 8.9 mg/dL (8.4-10.2); Carbon Dioxide 32 mmol/L (22-32); Chloride 97 mmol/L (98-107); Estimated Glomerular Filt Rate > 60 mL/min (>60); Glucose 86 mg/dL (80-110); HEMOLYSIS < 15 (0-50); Potassium 4.3 mmol/L (3.4-5.1); Sodium 133 mmol/L (137-145)
[2024-03-26 19:52] LABS: Percent Iron Saturation 30 % (15-50); Total Iron Binding Capacity 301 ug/dL (265-497); Transferrin 252 mg/dL (206-381)
[2024-03-26 20:17] LABS: Ferritin 38 ng/mL (11-264)
== END ==
PROVIDERS: Family Provider Family Medicine; PCP Family Medicine; Visit Provider Family Medicine
DX: D64.9 Anemia, unspecified (principal); E87.1 Hypo-osmolality and hyponatremia; I10 Essential (primary) hypertension
CPT/HCPCS: 80048; 82728; 83540; 83550; 83735; 85025

== ENCOUNTER → 2024-08-06 13:02 | Outpatient (CLI) | payer MEDICARE, OTHER, SELFPAY ==
[2024-08-06 19:01] LABS: Add Manual Diff / Slide Review NO; Basophils Absolute Auto 100 /uL (0-100); Basophils Percent Auto 0.6 % (0-2); Eosinophils Absolute Auto 100 /uL (0-450); Eosinophils Percent Auto 0.6 % (2-4); Hematocrit 34.4 % (36-46); Hemoglobin 11.7 g/dL (12.0-16.0); Lymphocytes Absolute Auto 1500 /uL (1100-4500); Mean Corpuscular HGB Conc 34.2 % (30-36); Mean Corpuscular Hemoglobin 29.7 PG (26-34); Mean Corpuscular Volume 86.9 fL (80-100); Monocytes Absolute Auto 700 /uL (0-900); Monocytes Percent Auto 6.9 % (3-14); Neutrophils Absolute Auto 7700 /uL (1500-7000); Neutrophils Percent Auto 76.9 % (50-75); Platelet Count 398 X10^3/uL (150-400); Red Blood Cell Count 3.96 X10^6/uL (4.0-5.2)
[2024-08-06 20:16] LABS: HEMOLYSIS < 15 (0-50); Iron 54 ug/dL (37-170)
[2024-08-06 20:18] LABS: BUN Creatinine Ratio 18.3 (6-22); Blood Urea Nitrogen 15 mg/dL (7-17); Calcium 9.2 mg/dL (8.4-10.2); Carbon Dioxide 29 mmol/L (22-32); Chloride 94 mmol/L (98-107); Estimated Glomerular Filt Rate > 60 mL/min (>60); Glucose 78 mg/dL (80-110); HEMOLYSIS < 15 (0-50); Potassium 4.4 mmol/L (3.4-5.1); Sodium 129 mmol/L (137-145)
[2024-08-06 20:30] LABS: Percent Iron Saturation 17 % (15-50); Total Iron Binding Capacity 319 ug/dL (265-497); Transferrin 264 mg/dL (206-381)
[2024-08-06 20:43] LABS: Free T3, Triiodothyronine Free 3.16 pg/mL (2.77-5.27); Free T4, Direct Thyroxine 0.57 ng/dL (0.78-2.19)
[2024-08-06 20:56] LABS: Ferritin 25 ng/mL (11-264)
[2024-08-06 20:57] LABS: Thyroid Stimulating Hormone 4.53 uIU/mL (0.47-4.68)
== END ==
PROVIDERS: Family Provider Family Medicine; PCP Family Medicine; Visit Provider Family Medicine
DX: E87.1 Hypo-osmolality and hyponatremia (principal); D64.9 Anemia, unspecified; Z01.812 Encounter for preprocedural laboratory examination; E05.90 Thyrotoxicosis, unspecified without thyrotoxic crisis or storm; I10 Essential (primary) hypertension
CPT/HCPCS: 80048; 82728; 83540; 83550; 84439; 84443; 84481; 85025

== ENCOUNTER → 2024-08-16 07:40 | Outpatient (CLI) | payer MEDICARE, OTHER, SELFPAY ==
[2024-08-19 11:15] LABS: Fecal Immunochemical Test Positive (Negative)
== END ==
PROVIDERS: Family Provider Family Medicine; PCP Family Medicine; Visit Provider Family Medicine
DX: R00.1 Bradycardia, unspecified (principal); D64.9 Anemia, unspecified
CPT/HCPCS: 82274

== ENCOUNTER → 2024-10-08 12:55 | Outpatient (CLI) | payer MEDICARE, OTHER, SELFPAY ==
[2024-10-08 19:34] LABS: Add Manual Diff / Slide Review NO; Basophils Absolute Auto 0 /uL (0-100); Basophils Percent Auto 0.5 % (0-2); Eosinophils Absolute Auto 100 /uL (0-450); Eosinophils Percent Auto 0.9 % (2-4); Hematocrit 38.5 % (36-46); Lymphocytes Absolute Auto 1300 /uL (1100-4500); Lymphocytes Percent Auto 14.9 % (25-40); Mean Corpuscular HGB Conc 33.6 % (30-36); Mean Corpuscular Hemoglobin 29.1 PG (26-34); Mean Corpuscular Volume 86.4 fL (80-100); Monocytes Absolute Auto 600 /uL (0-900); Monocytes Percent Auto 6.8 % (3-14); Neutrophils Absolute Auto 7000 /uL (1500-7000); Neutrophils Percent Auto 76.9 % (50-75); Platelet Count 382 X10^3/uL (150-400); Red Blood Cell Count 4.46 X10^6/uL (4.0-5.2); Red Cell Distribution Width 12.4 % (11.6-14.8); White Blood Cell Count 9.1 X10^3/uL (4.5-11.0)
[2024-10-08 19:40] LABS: Reticulocyte Count, Percent 0.8 % (1.1-2.6)
[2024-10-08 19:57] LABS: BUN Creatinine Ratio 18.8 (6-22); Blood Urea Nitrogen 16 mg/dL (7-17); Calcium 9.3 mg/dL (8.4-10.2); Carbon Dioxide 32 mmol/L (22-32); Chloride 94 mmol/L (98-107); Estimated Glomerular Filt Rate > 60 mL/min (>60); Glucose 88 mg/dL (80-110); HEMOLYSIS < 15 (0-50); Magnesium 1.8 mg/dL (1.6-2.3); Potassium 4.3 mmol/L (3.4-5.1); Sodium 129 mmol/L (137-145)
[2024-10-08 20:29] LABS: Thyroid Stimulating Hormone 2.79 uIU/mL (0.47-4.68)
[2024-10-08 20:33] LABS: Ferritin 22 ng/mL (11-264)
[2024-10-08 21:20] LABS: Free T4, Direct Thyroxine 0.74 ng/dL (0.78-2.19)
== END ==
PROVIDERS: Family Provider Family Medicine; PCP Family Medicine; Visit Provider Family Medicine
DX: R00.1 Bradycardia, unspecified (principal); I10 Essential (primary) hypertension; D64.9 Anemia, unspecified; E05.90 Thyrotoxicosis, unspecified without thyrotoxic crisis or storm; E87.1 Hypo-osmolality and hyponatremia
CPT/HCPCS: 80048; 82728; 83735; 84439; 84443; 84480; 85025; 85045

== ENCOUNTER → 2025-01-06 11:03 | Outpatient (CLI) | payer MEDICARE, OTHER, SELFPAY ==
[2025-01-06 19:22] LABS: BUN Creatinine Ratio 21.1 (6-22); Blood Urea Nitrogen 19 mg/dL (7-17); Calcium 9.5 mg/dL (8.4-10.2); Carbon Dioxide 30 mmol/L (22-32); Chloride 93 mmol/L (98-107); Estimated Glomerular Filt Rate > 60 mL/min (>60); Glucose 94 mg/dL (80-110); HEMOLYSIS < 15 (0-50); Potassium 4.7 mmol/L (3.4-5.1); Sodium 131 mmol/L (137-145)
[2025-01-06 19:49] LABS: Thyroid Stimulating Hormone 2.68 uIU/mL (0.47-4.68)
[2025-01-06 19:54] LABS: Ferritin 28 ng/mL (11-264)
== END ==
PROVIDERS: Family Provider Family Medicine; PCP Family Medicine; Visit Provider Family Medicine
DX: D50.9 Iron deficiency anemia, unspecified (principal); R53.83 Other fatigue; I10 Essential (primary) hypertension; E05.90 Thyrotoxicosis, unspecified without thyrotoxic crisis or storm; E87.1 Hypo-osmolality and hyponatremia
CPT/HCPCS: 80048; 82728; 84443

== ENCOUNTER → 2025-03-18 11:25 | Outpatient (CLI) | payer MEDICARE, OTHER, SELFPAY ==
[2025-03-18 19:01] LABS: Add Manual Diff / Slide Review NO; Basophils Absolute Auto 0 /uL (0-100); Basophils Percent Auto 0.4 % (0-2); Eosinophils Absolute Auto 100 /uL (0-450); Hematocrit 38.5 % (36-46); Lymphocytes Absolute Auto 1400 /uL (1100-4500); Lymphocytes Percent Auto 16.5 % (25-40); Mean Corpuscular HGB Conc 33.8 % (30-36); Mean Corpuscular Hemoglobin 29.2 PG (26-34); Mean Corpuscular Volume 86.6 fL (80-100); Monocytes Absolute Auto 600 /uL (0-900); Monocytes Percent Auto 6.7 % (3-14); Neutrophils Absolute Auto 6600 /uL (1500-7000); Neutrophils Percent Auto 75.4 % (50-75); Platelet Count 359 X10^3/uL (150-400); Red Blood Cell Count 4.44 X10^6/uL (4.0-5.2); Red Cell Distribution Width 12.5 % (11.6-14.8); White Blood Cell Count 8.7 X10^3/uL (4.5-11.0)
[2025-03-18 19:30] LABS: Free T4, Direct Thyroxine 0.76 ng/dL (0.78-2.19)
[2025-03-18 19:44] LABS: Thyroid Stimulating Hormone 1.49 uIU/mL (0.47-4.68)
[2025-03-18 19:51] LABS: Ferritin 32 ng/mL (11-264)
== END ==
PROVIDERS: Family Provider Family Medicine; PCP Family Medicine; Visit Provider Family Medicine
DX: D50.9 Iron deficiency anemia, unspecified (principal); E87.1 Hypo-osmolality and hyponatremia; E05.90 Thyrotoxicosis, unspecified without thyrotoxic crisis or storm; R19.5 Other fecal abnormalities; K21.9 Gastro-esophageal reflux disease without esophagitis; I10 Essential (primary) hypertension
CPT/HCPCS: 82728; 84439; 84443; 85025

== ENCOUNTER → 2025-10-02 11:50 | Outpatient (CLI) | payer MEDICARE, OTHER, SELFPAY ==
[2025-10-02 18:54] LABS: Hematocrit 40.4 % (36-46); Hemoglobin 14.0 g/dL (12.0-16.0); Mean Corpuscular HGB Conc 34.6 % (30-36); Mean Corpuscular Hemoglobin 29.1 PG (26-34); Mean Corpuscular Volume 83.9 fL (80-100); Platelet Count 390 X10^3/uL (150-400)
[2025-10-02 19:01] LABS: Alanine Aminotransferase 17 IU/L (<35); Albumin 4.2 g/dL (3.5-5.0); Albumin Globulin Ratio 1.3 (1.0-2.8); Alkaline Phosphatase 76 U/L (38-126); Blood Urea Nitrogen 15 mg/dL (7-17); Calcium 9.3 mg/dL (8.4-10.2); Carbon Dioxide 29 mmol/L (22-32); Chloride 94 mmol/L (98-107); Estimated Glomerular Filt Rate > 60 mL/min (>60); Globulin 3.3 g/dL (1.7-4.1); Glucose 68 mg/dL (70-99); HEMOLYSIS 16 (0-50); Potassium 3.7 mmol/L (3.4-5.1); Sodium 134 mmol/L (137-145); Total Protein 7.5 g/dL (6.3-8.2)
[2025-10-02 19:26] LABS: Free T3, Triiodothyronine Free 3.70 pg/mL (2.77-5.27); Free T4, Direct Thyroxine 0.84 ng/dL (0.78-2.19)
[2025-10-02 19:40] LABS: Thyroid Stimulating Hormone 1.05 uIU/mL (0.47-4.68)
[2025-10-02 19:44] LABS: Ferritin 36 ng/mL (11-264)
== END ==
PROVIDERS: Family Provider Family Medicine; PCP Family Medicine; Visit Provider Family Medicine
DX: J45.21 Mild intermittent asthma with (acute) exacerbation (principal); D64.9 Anemia, unspecified; R53.83 Other fatigue; I10 Essential (primary) hypertension; E05.90 Thyrotoxicosis, unspecified without thyrotoxic crisis or storm; E87.1 Hypo-osmolality and hyponatremia; D50.0 Iron deficiency anemia secondary to blood loss (chronic)
CPT/HCPCS: 80053; 82728; 84439; 84443; 84481; 85027

== ENCOUNTER → 2025-10-16 11:34 | Outpatient (CLI) | payer MEDICARE, OTHER, SELFPAY ==
[2025-10-16 19:11] LABS: Hematocrit 40.5 % (36-46); Hemoglobin 13.8 g/dL (12.0-16.0); Mean Corpuscular HGB Conc 34.0 % (30-36); Mean Corpuscular Hemoglobin 28.4 PG (26-34); Mean Corpuscular Volume 83.6 fL (80-100); Platelet Count 354 X10^3/uL (150-400)
[2025-10-16 19:26] LABS: Alanine Aminotransferase 16 IU/L (<35); Albumin 3.9 g/dL (3.5-5.0); Albumin Globulin Ratio 1.2 (1.0-2.8); Alkaline Phosphatase 73 U/L (38-126); Blood Urea Nitrogen 16 mg/dL (7-17); Calcium 9.2 mg/dL (8.4-10.2); Carbon Dioxide 29 mmol/L (22-32); Chloride 95 mmol/L (98-107); Estimated Glomerular Filt Rate > 60 mL/min (>60); Globulin 3.2 g/dL (1.7-4.1); Glucose 83 mg/dL (70-99); HEMOLYSIS < 15 (0-50); Potassium 4.1 mmol/L (3.4-5.1); Sodium 132 mmol/L (137-145); Total Protein 7.1 g/dL (6.3-8.2)
[2025-10-16 19:56] LABS: Ferritin 30 ng/mL (11-264)
[2025-10-16 19:57] LABS: TSH w/ Reflex to FT4 1.01 uIU/mL (0.47-4.68)
== END ==
PROVIDERS: Family Provider Family Medicine; PCP Family Medicine; Visit Provider Family Medicine
DX: E05.90 Thyrotoxicosis, unspecified without thyrotoxic crisis or storm (principal); R79.89 Other specified abnormal findings of blood chemistry; E87.1 Hypo-osmolality and hyponatremia; G25.81 Restless legs syndrome; M35.3 Polymyalgia rheumatica; D50.0 Iron deficiency anemia secondary to blood loss (chronic)
CPT/HCPCS: 80053; 82728; 84443; 85027; 85651; 86140